=== PATIENT | female | born 1995 | race Caucasian/White ===

== ENCOUNTER 2017-11-20 16:53 | Emergency (ER) | payer OTHER ==
[~2017-11-20] VITALS: Ht 172.7 cm; Wt 59.4 kg
[2017-11-20 17:01] VITALS: BP 128/66; Ht 172.7 cm; Wt 59.4 kg
== END 2017-11-20 20:02 | disposition home or self-care (01) ==
LOC: ED 16:53
DX: H01.006 Unspecified blepharitis left eye, unspecified eyelid (principal); R51 Headache

== ENCOUNTER 2018-04-09 02:16 | Emergency (ER) | payer OTHER ==
[~2018-04-09] VITALS: Ht 172.7 cm; Wt 58.1 kg
[2018-04-09 02:22] VITALS: Ht 172.7 cm; Wt 58.1 kg
[2018-04-09 03:44] LABS: BASOPHIL % 0.2 % (0-2); PLATELET COUNT 177 x10^3mcL (130-400); RED CELL DISTRIBUTION WIDTH 12.6 % (11.5-14.5)
[2018-04-09 03:46] LABS: UA SPECIFIC GRAVITY >=1.030 (1.005-1.035); microscopic required? YES; urine erythrocyte 1+ (NEGATIVE)
[2018-04-09 03:56] LABS: CALCIUM 8.2 mg/dL (8.5-10.1); CARBON DIOXIDE 28.7 mmol/L (21-32); CHLORIDE SERUM 104 mmol/L (98-107); CREATININE SERUM 0.7 mg/dL (0.6-1.0); GFR1 > 60 mL/min; GLUCOSE SERUM 106 mg/dL (74-106); POTASSIUM SERUM 4.1 mmol/L (3.5-5.1); SODIUM SERUM 138 mmol/L (136-145)
[2018-04-09 04:03] LABS: ALKALINE PHOSPHATASE 50 U/L (46-116); ALT/SGPT 13 U/L (14-59); AST/SGOT 20 U/L (15-37); BILIRUBIN TOTAL 0.27 mg/dL (0.20-1.00); LIPASE 92 IU/L (73-393); TOTAL PROTEIN, SERUM 6.4 g/dL (6.4-8.2)
[2018-04-09 04:07] LABS: ALBUMIN 2.4 g/dL (3.4-5.0)
[2018-04-09 06:55] VITALS: BP 129/75
== END 2018-04-09 06:55 | disposition home or self-care (01) ==
LOC: ED 02:16
PROVIDERS: Emergency Medicine
DX: R10.33 Periumbilical pain (principal); R11.10 Vomiting, unspecified; F41.9 Anxiety disorder, unspecified
CPT/HCPCS: J1885; J2405; J7030

== ENCOUNTER 2018-12-21 09:02 | Emergency (ER) | payer OTHER ==
[~2018-12-21] VITALS: Ht 170.2 cm; Wt 55.3 kg
[2018-12-21 09:18] VITALS: Ht 170.2 cm; Wt 55.3 kg
[2018-12-21 10:19] VITALS: BP 116/84
== END 2018-12-21 10:19 | disposition home or self-care (01) ==
LOC: ED 09:02
DX: B00.1 Herpesviral vesicular dermatitis (principal); F41.9 Anxiety disorder, unspecified

== ENCOUNTER 2019-05-20 03:55 | Emergency (ER) | payer OTHER ==
[~2019-05-20] VITALS: Ht 170.2 cm; Wt 60.1 kg
[2019-05-20 04:09] VITALS: Ht 170.2 cm; Wt 60.1 kg
[2019-05-20 06:01] VITALS: BP 135/68
== END 2019-05-20 06:01 | disposition home or self-care (01) ==
LOC: ED 03:55
DX: M25.50 Pain in unspecified joint (principal); F41.9 Anxiety disorder, unspecified
CPT/HCPCS: J7512